=== PATIENT | female | born 1985 | race Caucasian/White ===

== ENCOUNTER 2025-03-21 17:26 | Observation (INO) ==
--- NOTE | 2025-03-21 18:17 | XRAY Report ---
PROCEDURE: XR Chest 1V INDICATIONS: Chest pain TECHNIQUE: One view of the chest was acquired. COMPARISON: None. FINDINGS: Surgical changes and devices: None. Lungs and pleura: No pleural effusions or pneumothorax. No consolidation. Mediastinum: Mediastinal contours appear normal. Heart size is normal. Bones and chest wall: No suspicious bony lesions. Overlying soft tissues appear unremarkable. IMPRESSION: No acute cardiopulmonary process. Reviewed by: Holden Allison MD on 03/21/2025 5:15 PM AKDT Approved by: Holden Allison MD on 03/21/2025 5:15 PM AKDT Station ID: [id number]
[2025-03-21 18:55] LABS: HCT - HEMATOCRIT 35.7 % (37.0-47.0); HGB - HEMOGLOBIN 12.3 g/dL (12.0-16.0); MEAN PLATELET VOLUME 10.7 fL (7.9-10.8); NRBC ABSOLUTE COUNT (AUTO) 0.00 x10^3/uL; NUCLEATED RED BLOOD CELLS AUTO 0.0 /100WBC; PLT - PLATELET COUNT 266 10^3/uL (130-450); RED CELL DISTRIBUTION WIDTH 11.7 % (12.0-15.0)
--- NOTE | 2025-03-21 19:06 | ED Physician Documentation ---
History of Present Illness Stated complaint Stated Complaint: SOA Chief complaint Chief Complaint: Resp History obtained from History obtained from: Patient History of Present Illness Timing: Prior to arrival Additonal information Additional information: Patient is a 40-year-old female presenting to the emergency department with increased shortness of breath lightheadedness that started today she has had a dry cough for about a month and feels her symptoms are progressively worsened within the last week with increased shortness of breath with walking into work she has no new leg swelling she has no history of asthma or COPD. She has a history of chronic smoking for about 19 years. She has no fevers or chills no recent sick contacts. She describes a tightness or band around her chest making it difficult for her to catch her breath. She has no recent travel and no recent antibiotic use. No productive cough no hemoptysis. She has not seen anyone for this earlier this month for her symptoms Meds/Allgy Home Medications Ambulatory Orders Medication Instructions Recorded Confirmed losartan 25 mg tablet (Cozaar) 25 mg PO DAILY 03/21/25 03/21/25 Allergies Allergies Allergy/AdvReac Type Severity Reaction Status Date / Time No Known Drug Allergies Allergy Verified 03/21/25 17:34 PFSH Active Problems All Active Problems (Updated 03/21/25 @ 23:03 by Samira Urbina PA-C) Increasing shortness of breath (Acute) Upper respiratory tract infection (Acute) Medical History Medical History (Updated 03/21/25 @ 23:03 by Samira Urbina PA-C) HTN (hypertension) Surgical History Surgical History (Updated 03/21/25 @ 17:40 by Roel Alvarez RN) Hx of cholecystectomy Social History Social History (Updated 03/21/25 @ 17:40 by Roel Alvarez RN) Smoking Status: Former smoker Do you dip or chew tobacco?: No Do you vape?: No Living arrangement: At home Marital Status: Living Condition: With spouse/s.o. and With family Level: Independent Do you feel safe in your home environment?: Yes History of physical, verbal, emotional, or financial abuse?: No ETOH Use: None Substance Use: denies use POLST Patient has POLST: No Exam Exam Vital Signs: Vital Signs x48h Temp Pulse Resp BP Pulse Ox 03/21/25 20:06 99 03/21/25 20:00 89 L 03/21/25 19:36 73 20 03/21/25 17:35 36.5 C 85 20 174/99 H 98 Constitutional normal general appearance HENMT normocephalic, head/scalp atraumatic and hearing grossly normal bilaterally Eyes PERRL, EOMs intact bilaterally and conjunctivae normal Neck/C-Spine visual inspection normal Lymph no lymphadenopathy noted Chest inspection of chest normal Respiratory breath sounds equal bilaterally, normal respiratory effort and clear to auscultation bilaterally Cardiovascular normal heart rate noted, regular rhythm noted, no gallop and no rub Gastrointestinal abdomen normal to inspection Back/Pelvis spine normal to inspection Extremities normal to inspection No lower leg swelling pulses intact in all 4 extremities. Results Vitals Vitals: Vital Signs - 24 hr 03/21/25 17:35 03/21/25 19:36 03/21/25 20:00 Temperature 36.5 C Temperature Source Temporal Artery Scan Pulse Rate 85 73 Respiratory Rate 20 20 Blood Pressure 174/99 H O2 Saturation 98 89 L O2 Source Room air Room air Room air Pain Intensity 7 03/21/25 20:06 Temperature Temperature Source Pulse Rate Respiratory Rate Blood Pressure O2 Saturation 99 O2 Source Room air Pain Intensity Oxygen O2 Source Room air EKG (time done) 1740: EKG releavant findings:: EKG personally interpreted by author of this note. Relevant findings are: lead III t wave inversion Rate: Rate (enter#) (81 bpm) Rhythm: NSR [place]: Normal Intervals: Normal OR QRS: QRS normal Ischemia: Normal ST segments Compare to prior EKG: Unchanged from prior EKG Computer interpretation: Agree with computer Labs Labs: Laboratory Tests 03/21/25 03/21/25 03/21/25 14:45 18:50 19:13 WBC 6.1 RBC 4.11 L Hgb 12.3 Hct 35.7 L MCV 86.9 MCH 29.9 MCHC 34.5 RDW 11.7 L Plt Count 266 MPV 10.7 Neut # (Auto) 3.0 Lymph # (Auto) 2.4 [place] # (Auto) 0.6 Eos # (Auto) 0.1 Baso # (Auto) 0.1 Absolute Nucleated RBC 0.00 Nucleated RBC % 0.0 D-Dimer < 200.0 L Sodium 138 Potassium 3.5 Chloride 104 Carbon Dioxide 28 Anion Gap 6.0 BUN 13 Creatinine 0.8 Estimated GFR (MDRD) 79 L Glucose 96 Calcium 9.7 Total Bilirubin 0.5 AST 19 ALT 16 Alkaline Phosphatase 99 Troponin I High Sens 3.0 B-Natriuretic Peptide 12 Total Protein 7.6 Albumin 4.8 Globulin 2.8 Albumin/Globulin Ratio 1.7 Lipase 24 Urine HCG, Qual Nasal Adenovirus (PCR) Nasal B. parapertussis DNA (PCR) Nasal Coronavir 229E PCR Nasal Coronavir HKU1 PCR Nasal Coronavir NL63 PCR Nasal Coronavir OC43 PCR Nasal Enterovir/Rhinovir PCR Nasal Influenza B PCR Nasal Influenza A PCR Nasal Parainfluen 1 PCR Nasal Parainfluen 2 PCR Nasal Parainfluen 3 PCR Nasal Parainfluen 4 PCR Nasal RSV (PCR) Nasal B.pertussis DNA PCR Nasal C.pneumoniae (PCR) Trev Human Metapneumo PCR Nasal M.pneumoniae (PCR) Nasal SARS-CoV-2 (PCR) 03/21/25 03/21/25 03/21/25 19:26 19:45 21:45 WBC RBC Hgb Hct MCV MCH MCHC RDW Plt Count MPV Neut # (Auto) Lymph # (Auto) [place] # (Auto) Eos # (Auto) Baso # (Auto) Absolute Nucleated RBC Nucleated RBC % D-Dimer Sodium Potassium Chloride Carbon Dioxide Anion Gap BUN Creatinine Estimated GFR (MDRD) Glucose Calcium Total Bilirubin AST ALT Alkaline Phosphatase Troponin I High Sens 3.5 B-Natriuretic Peptide Total Protein Albumin Globulin Albumin/Globulin Ratio Lipase Urine HCG, Qual NEGATIVE Nasal Adenovirus (PCR) NOT DETECTED Nasal B. parapertussis DNA (PCR) NOT DETECTED Nasal Coronavir 229E PCR NOT DETECTED Nasal Coronavir HKU1 PCR NOT DETECTED Nasal Coronavir NL63 PCR NOT DETECTED Nasal Coronavir OC43 PCR NOT DETECTED Nasal Enterovir/Rhinovir PCR NOT DETECTED Nasal Influenza B PCR NOT DETECTED Nasal Influenza A PCR NOT DETECTED Nasal Parainfluen 1 PCR NOT DETECTED Nasal Parainfluen 2 PCR NOT DETECTED Nasal Parainfluen 3 PCR NOT DETECTED Nasal Parainfluen 4 PCR NOT DETECTED Nasal RSV (PCR) NOT DETECTED Nasal B.pertussis DNA PCR NOT DETECTED Nasal C.pneumoniae (PCR) NOT DETECTED Trev Human Metapneumo PCR NOT DETECTED Nasal M.pneumoniae (PCR) NOT DETECTED Nasal SARS-CoV-2 (PCR) NOT DETECTED PD Medical Decision Making ED course Complexity details: reviewed old records and reviewed results ED course: Patient is a 40-year-old female generally healthy presents to the emergency department with increased shortness of breath and dry cough for about a month now. She notes increased shortness of breath with ambulating she denies any specific lightheadedness until today as well as pain with a band around her chest. She has no history of COPD no history of asthma no recent sick contacts fevers or chills. Vital stable here in the ED on arrival she is afebrile nontachycardic. She was given a DuoNeb here in the ED for shortness of breath symptoms but on reevaluation appeared more lightheaded and became hypoxic to 88% here in the ED CBC shows no significant leukocytosis her hemoglobin is stable D- dimer is negative for any PE CMP is unremarkable and troponin well within normal limits EKG shows normal sinus rhythm with repeat troponin and EKG at 2-hour irma continuing to show the symptoms. Patient was remained on 2 L nasal cannula for persistent shortness of breath here in the ED. Chest x-ray shows no acute cardiopulmonary findings I will send patient for CT chest with contrast to further evaluate her symptoms her respiratory swab was negative here in the ED. CT chest with contrast: Mild mixed interstitial and alveolar opacities at both lung bases and mild gravitational changes. This could be postinfectious or inflammatory.Widely patent airways. Patient covered with antibiotics here in the ED to cover for possible pneumonia here In the emergency department and was admitted to the hospitalist this evening. Patient was agreeable with this plan. Discharge Plan Discharge Patient Disposition: [facility] DC/Xfer Condition: Good Clinical Impression: Upper respiratory tract infection, Increasing shortness of breath Prescriptions: No Action losartan [Cozaar] 25 mg tablet 25 mg PO DAILY Print Language: Ecuadorean
[2025-03-21 19:13] LABS: ALT ALANINE AMINOTRANSFERASE 16.0 IU/L (10-60); AST ASPARTATE AMINOTRANSFERASE 19.0 IU/L (10-42); BUN - BLOOD UREA NITROGEN 13.0 mg/dL (6-20); CARBON DIOXIDE - CO2 28.0 mmol/L (21-32); CREATININE 0.8 mg/dL (0.6-1.3); GFR - MDRD 79.0 (>89)
[2025-03-21 19:15] LABS: TROPONIN I HIGH SENSITIVITY 3.0 ng/L (2.3-14.8)
[2025-03-21] MEDS: IPRATROPIUM/ALBUTEROL 3 ML NEB INH STA (19:36)
[2025-03-21 21:02] LABS: B. PARAPERTUSSIS- RESP PCR PAN NOT DETECTED; B. PERTUSSIS- RESP PCR PANEL NOT DETECTED; C. PNEUMONIAE- RESP PCR PANEL NOT DETECTED; CORONAVIRUS 229E-RESP PCR NOT DETECTED; CORONAVIRUS HKU1-RESP PCR NOT DETECTED; CORONAVIRUS NL63-RESP PCR NOT DETECTED; CORONAVIRUS OC43-RESP PCR NOT DETECTED; HUMAN METAPNEUMOVIRUS NOT DETECTED; INFLUENZA A- RESP PCR PANEL NOT DETECTED; INFLUENZA B - RESP PCR PANEL NOT DETECTED; M. PNEUMONIAE- RESP PCR PANEL NOT DETECTED; PARAINFLUENZA VIRUS 1 NOT DETECTED; PARAINFLUENZA VIRUS 2 NOT DETECTED; PARAINFLUENZA VIRUS 4 NOT DETECTED; RHINOVIRUS/ENTEROVIRUS NOT DETECTED; RSV- RESP PCR PANEL NOT DETECTED; SARS-CoV-2 -RESP PCR PANEL NOT DETECTED
--- NOTE | 2025-03-21 21:51 | CT Report ---
PROCEDURE: CT Chest W INDICATIONS: chest tightness sob, CONTRAST: 100 ML OMNI 300 TECHNIQUE: After the administration of intravenous contrast, a CT scan of the chest was performed. Images were recorded and evaluated at appropriate window settings. Reformats: axial MIP of the chest, coronal and sagittal. For radiation dose reduction, the following was used: automated exposure control, adjustment of mA and/or kV according to patient size. COMPARISON: Chest x-ray performed the same day FINDINGS: Image quality: Diagnostic. Chest wall and lower neck: Partially imaged thyroid gland is normal. No suspicious chest wall mass. No axillary or supraclavicular adenopathy by size. Lungs and pleura: There are scattered changes of bibasilar reticulation and patchy fine groundglass opacities in both costophrenic sulci and to a lesser extent posteriorly in the lower lobes. Central and peripheral airways are normal caliber without bronchial wall thickening or bronchiectasis.. No pleural effusions. No pneumothorax. No dense airspace consolidations. Mediastinum: Heart size is normal. No pericardial effusion. No large vessel abnormality. No mediastinal adenopathy by size criteria. No anterior or posterior mediastinal mass. Normal esophagus with a tiny hiatal hernia. Bones: No aggressive osseous abnormality. T11 wedging deformity appears chronic. No acute fractures seen. Upper Abdomen: Unremarkable. IMPRESSION: Mild mixed interstitial and alveolar opacities at both lung bases and mild gravitational changes. This could be postinfectious or inflammatory. Widely patent airways. Reviewed by: Nely Rocha MD on 03/21/2025 9:49 PM PDT Approved by: Nely Rocha MD on 03/21/2025 9:49 PM PDT Station ID: [id number]
[2025-03-21 22:03] LABS: HCG UR QUAL NEGATIVE
[2025-03-21] MEDS ORDERED: SODIUM CHLORIDE 0.9% MINIBAG 100 ML IV ONE (23:08)
[2025-03-21] MEDS: cefTRIAXone 1 GM VIAL IVP STA (23:14)
[2025-03-21] MEDS ORDERED: DOXYCYCLINE 100 MG TABLET PO ONE (23:18)
[2025-03-21] MEDS ORDERED: BENZONATATE 100 MG CAPSULE PO PRN (23:35)
[2025-03-21] MEDS ORDERED: MORPHINE 10 MG/ML VIAL IVP PRN (23:35)
[2025-03-21] MEDS ORDERED: ONDANSETRON 4 MG/2 ML VIAL IVP PRN (23:35)
[2025-03-21] MEDS ORDERED: MELATONIN 3 MG TABLET PO PRN (23:35)
[2025-03-21] MEDS ORDERED: PHENOL THROAT SPRAY 177 ML MM PRN (23:35)
[2025-03-21] MEDS: DOXYCYCLINE INJ 100 MG in SODIUM CHLORIDE 0.9% MINIBAG 100 ML IV STA (23:38)
[2025-03-22 00:06] LABS: CHOL/HDL RATIO 3.7 (<4.4); LDL/HDL RATIO 2.0 (<4.4); VLDL CHOLESTEROL 32 mg/dL
--- NOTE | 2025-03-22 00:15 | HISTORY & PHYSICAL EXAMINATION ---
Chief Complaint Chief Complaint Chief Complaint: sob, cough History of Present Illness History of Present Illness HPI Comment/Other: pt with progressive sob + dry cough for about a month but has gotten steadily worse over this past week, making it difficult for her to work. pt smoked for 19 yr but no longer smokes. denies any other substance usage. lives with family. no known sick contacts or recent travel. no chest pain, nausea, vomiting, abd pain, leg swelling, ams, falls. 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 states she does not have health insurance so has limited access to outpt care and f/u. no hemoptysis. h/o htn but denies any h/o copd or asthma. no fevers or chills. is not on home O2. ed w/u showed negative resp viral panel and negative trop and d- dimer. ct chest indicated findings concerning for infection / inflammation. cxr wnl. Review of Systems Status of ROS: 10 or more systems reviewed and unremarkable except as noted in history and below PFSH Active Problems All Active Problems (Updated 03/21/25 @ 23:03 by Samira Urbina PA-C) Increasing shortness of breath (Acute) Upper respiratory tract infection (Acute) Medical History Medical History (Updated 03/21/25 @ 23:03 by Samira Urbina PA-C) HTN (hypertension) Surgical History Surgical History (Updated 03/21/25 @ 17:40 by Roel Alvarez RN) Hx of cholecystectomy Social History Social History (Updated 03/21/25 @ 17:40 by Roel Alvarez RN) Smoking Status: Former smoker Do you dip or chew tobacco?: No Do you vape?: No Living arrangement: At home Marital Status: Living Condition: With spouse/s.o. and With family Level: Independent Do you feel safe in your home environment?: Yes History of physical, verbal, emotional, or financial abuse?: No ETOH Use: None Substance Use: denies use POLST Patient has POLST: No Meds/Allgy Home Medications Ambulatory Orders Medication Instructions Recorded Confirmed losartan 25 mg tablet (Cozaar) 25 mg PO DAILY 03/21/25 03/21/25 Allergies Allergies Allergy/AdvReac Type Severity Reaction Status Date / Time No Known Drug Allergies Allergy Verified 03/21/25 17:34 Exam Exam Vital Signs: Vital Signs x48h Temp Pulse Resp BP Pulse Ox 03/21/25 20:06 99 03/21/25 20:00 89 L 03/21/25 19:36 73 20 03/21/25 17:35 36.5 C 85 20 174/99 H 98 Constitutional normal general appearance and no apparent distress HENMT normocephalic and hearing grossly normal bilaterally Eyes EOMs intact bilaterally Neck/C-Spine visual inspection normal Respiratory no retractions and no use of accessory muscles Cardiovascular details per ed charting Extremities normal to inspection Neurology no movement abnormality noted, no focal motor deficit noted and speech normal Psychiatry mental status grossly normal, oriented x3, thought process normal, cooperative and affect normal Conclusion/Plan Problem List (1) Increasing shortness of breath: (2) Upper respiratory tract infection: Lab Results 03/21/25 14:45 03/21/25 14:45 Other Other Results/Comments: pt with - - acute hypoxemic resp failure likely new development of copd exacerbation, w/o h/o same smoked for 19 yr rocephin + doxy, prednisone, O2 supportive meds neb tx held at this time given adverse rxn in ed viral panel NEG, d-dimer NEG - pneumonia further complicating above rocephin, doxy f/u resp cultures - essential htn continue home losartan - uninsured status limits her access to care bilingual social worker consult to assist with any options further orders per clinical course
[2025-03-22 05:08] LABS: HCT - HEMATOCRIT 36.9 % (37.0-47.0); HGB - HEMOGLOBIN 12.1 g/dL (12.0-16.0); MEAN PLATELET VOLUME 10.6 fL (7.9-10.8); NRBC ABSOLUTE COUNT (AUTO) 0.00 x10^3/uL; NUCLEATED RED BLOOD CELLS AUTO 0.0 /100WBC; PLT - PLATELET COUNT 264 10^3/uL (130-450); RED CELL DISTRIBUTION WIDTH 11.9 % (12.0-15.0)
[2025-03-22 05:26] LABS: ALT ALANINE AMINOTRANSFERASE 15.0 IU/L (10-60); AST ASPARTATE AMINOTRANSFERASE 17.0 IU/L (10-42); BUN - BLOOD UREA NITROGEN 9.0 mg/dL (6-20); CARBON DIOXIDE - CO2 25.0 mmol/L (21-32); CREATININE 0.7 mg/dL (0.6-1.3); GFR - MDRD 92.0 (>89)
[2025-03-22 07:55] LABS: ESTIMATED AVERAGE GLUCOSE 100 mg/dL (70-100); HEMOGLOBIN A1c% 5.1 % (4.27-6.07)
[2025-03-22] MEDS: ACETAMINOPHEN 325 MG TABLET PO PRN (08:48)
[2025-03-22] MEDS: ENOXAPARIN 40 MG/0.4 ML SYRINGE SUBQ SCH (08:48)
[2025-03-22] MEDS: ASCORBIC ACID 500 MG TABLET PO SCH (08:49)
[2025-03-22] MEDS: LACTOBACILLUS RHAMNOSUS GG CAPSULE PO SCH (08:49)
[2025-03-22] MEDS: LOSARTAN 50 MG TABLET PO SCH (08:49)
[2025-03-22] MEDS: DOXYCYCLINE 100 MG TABLET PO SCH (08:49)
[2025-03-22] MEDS: cefTRIAXone 1 GM in SODIUM CHLORIDE 0.9% MINIBAG 100 ML IV SCH (08:59)
[2025-03-22] MEDS ORDERED: AZITHROMYCIN INJ 500 MG in SODIUM CHLORIDE 0.9% 250 ML IV SCH (09:00)
[2025-03-22] MEDS ORDERED: DOXYCYCLINE INJ 100 MG in SODIUM CHLORIDE 0.9% MINIBAG 100 ML IV SCH (09:00)
[2025-03-22] MEDS ORDERED: MORPHINE 2 MG/ML CARPUJECT IVP PRN (09:13)
--- NOTE | 2025-03-22 14:42 | PHARMACY PROGRESS NOTE ---
Best Possible Medication History Admit Date and Time: 03/21/25 922187 Home Medications Medication Instructions Recorded Confirmed Type losartan 25 mg tablet (Cozaar) 25 mg PO DAILY 03/21/25 03/21/25 History Processed by: Pharmacy (Medication reconciliation completed by Pharmacy TechnGregorio cornell) Medications reviewed in ED?: No Medication History completed: Yes Patient Interview: Completed Secondary Source(s): Pharmacy records (unable to confirm recent fill of losartan with either of patient's preferred pharmacies ([facility])) [facility] Statement: As the person ultimately responsible for medication therapy, providers are able to order a medication from an existing home medication list in [facility] via the "Reconcile Routine" prior to Confirmation of that medication by network desktop support specialist. Such practice is discouraged except when the physician, in their clinical judgment, deems that a medical need exists for a medication without regard to previous use.
[2025-03-22] MEDS: IPRATROPIUM/ALBUTEROL 3 ML NEB INH PRN (20:17)
[2025-03-23] MEDS: SODIUM CHLORIDE FLUSH 0.9% 10 ML SYRINGE IVP PRN (00:12)
[2025-03-23 11:34] VITALS: TEMP 98.1
--- NOTE | 2025-03-23 13:50 | Discharge Summary ---
Discharge Summary Admit Date: 03/22/25 Discharge Date: 03/23/25 Discharging Provider: Laine Lao PA-C Primary Care Provider: none Code Status: Attempt Resuscitation DIAGNOSES Discharge Diagnoses with Status of Each Condition: Acute hypoxic respiratory failure, resolved Community-acquired pneumonia, treated Essential hypertension, chronic and treated HPI History of Present Illness: pt with progressive sob + dry cough for about a month but has gotten steadily worse over this past week, making it difficult for her to work. pt smoked for 19 yr but no longer smokes. denies any other substance usage. lives with family. no known sick contacts or recent travel. no chest pain, nausea, vomiting, abd pain, leg swelling, ams, falls. 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 states she does not have health insurance so has limited access to outpt care and f/u. no hemoptysis. h/o htn but denies any h/o copd or asthma. no fevers or chills. is not on home O2. ed w/u showed negative resp viral panel and negative trop and d- dimer. ct chest indicated findings concerning for infection / inflammation. cxr wnl. ALLERGIES Allergies Allergy/AdvReac Type Severity Reaction Status Date / Time No Known Drug Allergies Allergy Verified 03/21/25 17:34 MEDICATIONS Ambulatory Orders Medication Instructions Recorded Confirmed losartan 25 mg tablet (Cozaar) 25 mg PO DAILY 03/21/25 03/21/25 Augmentin 875 mg-potassium 1 tab PO BID #7 tabs clavulanate 125 mg tablet codeine 10 mg-guaifenesin 100 mg/5 5 ml PO .qhs PRN co ugh #120 mL 03/23/25 mL oral liquid (Guaifenesin AC) doxycycline hyclate 100 mg tablet 100 mg PO BID #7 tab s 03/23/25 guaifenesin 600 mg tablet, 600 mg PO BID #14 tabs 03/09 extended release 12 hr (Mucinex) hydroxyzine pamoate 25 mg capsule 25 mg PO QPM PRN Anx iety #90 caps 03/23/25 levalbuterol tartrate 45 2 inh inhalation Q4H PRN raul rtness 03/23/25 mcg/actuation aerosol inhaler of breath or wheezing #1 5 grams losartan 50 mg tablet 25 mg (1/2 x 50 mg) PO DAILY #60 03/23/25 tabs prednisone 20 mg tablet 20 mg PO DAILYWM #4 tabs 03/09 tramadol 50 mg tablet 25 mg (1/2 x 50 mg) PO Q8H P RN 03/23/25 Moderate Pain (Level 4-6) #20 tabs PHYSICAL EXAM AT DISCHARGE Vital Signs: Vital Signs x48h Temp Pulse Resp BP Pulse Ox 03/23/25 15:36 36.7 C 74 16 153/96 H 97 LABS 03/22/25 04:49 03/22/25 04:49 TIME SPENT Time Spent in Discharge (Minutes): 25 Discharge Plan Discharge Patient Disposition: Home, Self Care Condition: Good Prescriptions: New losartan 50 mg Tablet 25 mg PO DAILY Qty: 60 0RF prednisone 20 mg Tablet 20 mg PO DAILYWM Qty: 4 0RF tramadol 50 mg Tablet 25 mg PO Q8H PRN (Reason: Moderate Pain (Level 4-6)) Qty: 20 0RF doxycycline hyclate 100 mg Tablet 100 mg PO BID Qty: 7 0RF hydroxyzine pamoate 25 mg Capsule 25 mg PO QPM PRN (Reason: Anxiety) Qty: 90 0RF guaifenesin [Mucinex] 600 mg Tablet Extended Release 12hr 600 mg PO BID Qty: 14 0RF amoxicillin-pot clavulanate 875-125 mg tablet 1 tab PO BID Qty: 7 0RF codeine-guaifenesin [Guaifenesin AC] 10-100 mg/5 mL liquid 5 ml PO .qhs PRN (Reason: cough) Qty: 120 0RF levalbuterol tartrate 45 mcg/actuation HFA aerosol inhaler 2 inh inhalation Q4H PRN (Reason: shortness of breath or wheezing) Qty: 15 3RF Continued losartan [Cozaar] 25 mg tablet 25 mg PO DAILY Diet: Regular Interventions: Belongings Inventory Last Done: 03/23/25 15:02 Health Concerns: You came into the hospital because you were having difficulty breathing. It looks like you had a little bit of a pneumonia combined with maybe some underlying lung disease that put you in a place where you were not getting enough oxygen. We have given you multiple medications to help that and everything seems to be working. You have gotten better. I will expect however that you will cough for quite a long time at least 6 weeks. I have given you several medications both to help with your symptoms and to help make you better. I have given you an inhaler called lev albuterol. It may have less of the side effects that you experience with the nebulizer treatments. It will also help open up your lungs. When the coughing gets too much I have given you a prescription for something called Robitussin AC. It has some codeine in it which helps stop the coughing. It is also sedating and you should not work or drive on it. I have given you a prescription for prednisone. I want you to take this every morning as per the package directions with food. It will cause you to be awake show you should not take it in the afternoon or evening. Just make sure to take it when you wake up in the morning with something to eat. I have prescribed you 2 antibiotics. These are called doxycycline and Augmentin. You take them twice a day, and you can take them together. I would also recommend that you take these with food. It is fine to take them with your prednisone in the morning. I also sent a prescription in for something called guaifenesin also known as Mucinex. It helps thin out the mucus and that way you can hopefully eventually cough it up. For pain I have prescribed some tramadol. I noticed that you took some of it here and it might be helpful for you. I have prescribed Vistaril as well this is for anxiety. I would recommend that you use it at night. It will cause you to be sleepy and you should not drive on it. You should also not go to work on it. Our hope for you is that you can get health insurance and get the follow-up care that you need. In an effort to try to help with your overall health I have prescribed refills on your blood pressure medicine. I want you to continue this. I think it is possible that you do have some COPD or chronic asthma. You need pulmonary function test to definitively figure this out. At this point everything that we do for your health is just trying to keep you getting through life. I would love to see you get some health insurance so that you can get the healthcare that you deserve. Do remember that our walk-in clinics are available to you at any time for any health concerns. Print Language: Mongolian Patient Instructions: Pneumonia Community Acquired Stand Alone Forms: PCP List Vitals documented within 30 minutes of discharge?: Yes (Vitals charted on worklist at 1536)
[2025-03-23 16:10] VITALS: BP 153/96; O2SAT 97
== END 2025-03-23 15:48 | disposition home or self-care (01) ==
LOC: ED 17:26 → MS3 17:26 → MS2 23:59
PROVIDERS: ADMIT Student in an Organized Health Care Education/Training Program; ATTEND Student in an Organized Health Care Education/Training Program